=== PATIENT | male | born 1960 | race Caucasian/White ===

== ENCOUNTER 2016-09-13 07:42 | Inpatient (IN) ==
[2016-09-13] MEDS ORDERED: D5 1/2 NS 1,000 ML IV ONE (08:09)
--- NOTE | 2016-09-13 08:14 | PROVIDER DOCUMENTATION ---
HPI-General Adult - General Chief Complaint: Weakness Stated Complaint: WEAKNESS, NOT APPETITE Time Seen by Provider: 09/13/16 08:05 Source: patient Unable to obtain history due to:: urgency Allergies/Adverse Reactions: Patient Allergies Allergy/AdvReac Type Severity Reaction Status Date / Time Sulfa (Sulfonamide Allergy Unknown Verified 04/12/16 12:40 Antibiotics) Home Medications: Home Medication List Medication Instructions Recorded Confirmed Last Taken Type Calcium Carbonate/Vit D3 [Caltrate 1 each PO BID #0 tablet 04/22/16 Unknown Rx 600 + D] Docusate Sodium [Colace] 100 mg PO BID #0 capsule 04/22/16 Unknown Rx Insulin Glargine [Lantus] 5 unit SUBQ DAILY #2 insuln.pen 04/22/16 Unknown Rx Metformin [Glucophage] 850 mg PO BID CC #120 tablet 04/22/16 Unknown Rx Sitagliptin [Januvia] 100 mg PO DAILY #90 tablet 04/22/16 Unknown Rx - History of Present Illness -Gen Adult Nature of Presenting Problems: 55 year old male presents with complaint of generalized weakness and fatigue. Says he has no appetite. He weighs about 75lbs and is 6 feet. He looks extremely cachectic. Denies any chest pain, dyspnea, n/v/d. Location of Pain/Injury: reports: none Pain Radiation: reports: no radiation Quality of Pain: reports: none Onset/Duration: reports: unsure Timing: reports: still present Context/Activities at Onset: reports: none Modifying Factors: improves with: nothing Associated Symptoms: reports: loss of appetite Similar Symptoms Previously?: No Recently seen or treated by another doctor?: No - Sickle Cell Pain Related Context Sickle Cell Pain Location: reports: none Review of Systems - Adult - REVIEW OF SYSTEMS - ADULT Constitutional: reports: see HPI, fatique Eyes: reports: see HPI Ears, Nose, Mouth & Throat: reports: no symptoms reported Cardiovascular: reports: no symptoms reported Respiratory: reports: no symptoms reported Gastrointestinal: reports: no symptoms reported Genitourinary: reports: no symptoms reported Musculoskeletal: reports: no symptoms reported Integumentary: reports: see HPI, skin thickening, other (dry skin, poor skin turgor) Neurological: reports: no symptoms reported Psychiatric: reports: no symptoms reported Endocrine: reports: no symptoms reported Hematologic/Lymphatic: reports: no symptoms reported Allergic/Immunologic: reports: no symptoms reported All Other Systems: Reviewed and Negative Past History - Adult - PAST MEDICAL HISTORY-ADULT Review of Records: reports: Old Records Reviewed, Nursing Assessment Review, Medications Reviewed, Social history reviewed & non-contributory. Endocrine/Immune: reports: Diabetes - PRIOR SURGERIES/PROCEDURES Surgical/Procedure History: reports: orthopedic (extremity) - IMMUNIZATION STATUS Childhood Immunizations: See Nurse Assessment Flu Vaccine: See Nurse Assessment - FAMILY HISTORY Family History: reviewed, not pertinent Physical Exam-General - PHYSICAL EXAM-ADULT Initial Vital Signs Reviewed: Yes - CONSTITUTIONAL General Appearance: cachetic, thin - EYES Eyes: PERRL/EOMI - HEAD, EARS, NOSE, MOUTH & THROAT HENMT: normocephalic/atraumatic, TMs normal - NECK Neck: non-tender, full range of motion, supple - RESPIRATORY Respiratory: chest non-tender, lungs clear, normal breath sounds - CARDIOVASCULAR Cardiovascular: normal peripheral pulses, regular rate, rhythm, no edema - GASTROINTESTINAL (ABDOMEN) Abdominal Exam: normal bowel sounds, non tender, soft - LYMPHATIC Lymphatic: no adenopathy - MUSCULOSKELETAL Back Exam: normal inspection, no CVA tenderness, no vertebral tenderness Extremity: normal range of motion, non-tender, normal gait - SKIN Integumentary: warm/dry, warm - NEUROLOGIC Neurologic: [employer] II-XII nml as tested, grossly normal - PSYCHIATRIC Psych/Mental Status: normal mood/affect Progress - PLAN OF CARE/RESULTS Progress/Plan/Lab Results: Vital Signs - 8 hr 09/13/16 07:43 Temperature 96.8 F L Pulse Rate 92 H Respiratory Rate 20 Blood Pressure 129/087 Orders Category Date Time Status Cardiac Monitoring DIRECTED Care 09/13/16 08:06 Ordered Oxygen Therapy- ED Nursing DIRECTED Care 09/13/16 08:06 Ordered Saline Loc NOW Care 09/13/16 08:06 Ordered CHEST-1 VIEW [RAD] Stat Exams 09/13/16 08:08 Ordered CBC WITH ELECTRONIC DIFF [HEME] Stat Lab 09/13/16 08:06 Ordered CK PROFILE [SP CHEM] Stat Lab 09/13/16 08:06 Ordered COMPREHENSIVE METABOLIC PANEL [CHEM] Stat Lab 09/13/16 08:06 Ordered MAGNESIUM [CHEM] Stat Lab 09/13/16 08:06 Ordered PRO B-NATRIURETIC PEPTIDE Stat Lab 09/13/16 08:06 Or[address]IME WITH INR PL [COAG] Stat Lab 09/13/16 08:[address] [COAG] Stat Lab 09/13/16 08:06 Ordered TROPONIN T Stat Lab 09/13/16 08:06 Ordered Dextrose 5%-0.45% NaCl Inj [D5 1/2 Ns] 1,000 ml Med 09/13/16 08:09 Ordered IV WIDE OPEN EKG [EKG] Stat Ther 09/13/16 08:06 Ordered Result Diagrams: 09/13/16 08:20 09/13/16 08:20 Departure - Departure Time of Disposition Decision: :17 DIAGNOSIS: Malnutrition compromising bodily function, Hypoglycemia, Generalized weakness Disposition: ADMITTED INPATIENT 09 Certified Medical Emergency: Emergent Condition: Critical Additional Freetext Instructions: case discussed with Dr. Ortiz Referrals and Follow-Ups: Rah Collins [Primary Care Provider] - - Critical Care Note This patient required my direct & personal management of CC.: Yes Attestation - Physician/ CARMENCITA Attestation Patient care was provided by Advanced Practice Provider:: Yes Advanced Practice Provider documentation review:: The Mid-level provider documentation, treatment plan and medical decision making was reviewed by the physician who agrees with all treatment and medical decision making by the MLP. The physician spent face to face time with patient:: Yes Advanced Practice Provider documentation review:: The physician spent face to face time with this patient and agrees with all MLP documentation, treatment, and medical decision making by the MLP. See provider notes for further information.
--- NOTE | 2016-09-13 08:14 | EKG Report ---
Test Performed on : 09/13/2016 08:06:50 AM Test Reason : CHEST PAIN Blood Pressure : / mmHG Vent. Rate : 085 BPM Atrial Rate : 085 BPM P-R Int : 148 ms QRS Dur : 086 ms QT Int : 406 ms P-R-T Axes : 088 094 054 degrees QTc Int : 483 ms Normal sinus rhythm. Rightward axis Prolonged QT Abnormal ECG When compared with ECG of 12-APR-2016 13:57, No significant change was found Unconfirmed Result
[2016-09-13 08:26] LABS: MANUAL DIFF NEEDED? NO
[2016-09-13 08:30] LABS: BASO% 0.3 % (0.0-0.8); EOS% 0.1 % (0.0-10.0); HEMATOCRIT 38.3 % (42.0-52.0); HEMOGLOBIN 14.7 g/dL (14.0-18.0); LYMPH# 1.27 X1000 (1.2-3.4); LYMPH% 18.3 % (20.5-51.1); MCHC 38.4 g/dL (33-37); MCV 91.2 FL (81-99); MONO% 10.6 % (1.7-9.3); MPV 10.3 FL (7.4-10.4); NEUT% 70.4 % (42.2-75.2); PLT 157 X1000 (130-400)
[2016-09-13 08:31] LABS: EOS# 0.01 X1000 (0.0-0.7); MONO# 0.74 X1000 (0.11-0.59)
[2016-09-13] MEDS ORDERED: D50W SYRINGE ONE (08:31)
[2016-09-13] MEDS ORDERED: D50W SYRINGE IV ONE (08:35)
--- NOTE | 2016-09-13 08:38 | Diag Imaging Result Doc PS360 ---
EXAM: CHEST-PORTABLE - 09/13/2016 HISTORY: weak TECHNIQUE: Portable chest one view COMPARISON: 07/04/2016 FINDINGS: Heart size is normal. There is been interval decrease in left upper lobe opacity. There is possibly a small residual left upper lobe opacity but there is artifact over this area from overlying clavicle and scapula. The remainder of the lungs appear essentially clear. There is no pleural effusion or pneumothorax identified. The PICC has been removed. IMPRESSION: Decrease in left upper lobe opacity compared to prior. No other evidence of acute disease. Electronically signed by Kwabena Kimble 09/13/2016 8:36 AM
[2016-09-13 08:46] LABS: INR 0.96 (0.86-1.15); PROTIME 13.1 Seconds (12.1-15.5); PTT PL 28.7 Seconds (22.6-43.9)
[2016-09-13 08:59] LABS: AGAP 16; ALBUMIN 4.2 g/dL (3.5-5.0); ALKALINE PHOSPHATASE 98 U/L (32-122); BUN 50 mg/dL (8-22); CALCIUM 9.5 mg/dL (8.8-10.2); CHLORIDE 89 mmol/L (98-107); CK PROFILE 34 U/L (24-204); COSMO 278; GOT 41 U/L (10-34); GPT 23 U/L (10-44); MAGNESIUM 1.7 mg/dL (1.5-2.7); POTASSIUM 3.7 mmol/L (3.5-5.1); SODIUM 132 mmol/L (136-145); TCO2 27 mmol/L (25-35); TOTAL PROTEIN 7.3 g/dL (6.3-8.3)
[2016-09-13] MEDS ORDERED: TYLENOL PO PRN (11:00)
[2016-09-13] MEDS ORDERED: PNEUMOVAX 23 IM ONE (11:00)
[2016-09-13] MEDS ORDERED: ZOFRAN IV PRN (11:00)
[2016-09-13] MEDS: NS 1,000 ML IV SCH ×2 (12:00→21:28)
--- NOTE | 2016-09-13 12:34 | HISTORY AND PHYSICAL ---
PRIMARY CARE PHYSICIAN: Dr. Rah Collins. CHIEF COMPLAINT: Generalized weakness, fatigue, and weight loss. HISTORY OF PRESENTING ILLNESS: This is a 55-year-old male who presents to the [facility] ER with complaints of just generalized weakness, fatigue, and weight loss. Was in the hospital back in June for a left upper lobe pneumonia. There was a question of a left upper lobe mass. He states he has had a complete workup including a PET scan that was negative for any cancer, but states that over the past 8 months he has lost approximately 100 pounds. States that he does not have an appetite. Denies any nausea or vomiting when he does eat. He has had decreased fluid intake also. He appears very cachectic, with muscle wasting. Laboratory data is fairly unremarkable except for a sodium of 132 and a chloride of 89. His BUN is 50. His albumin level was 4.2. His chest x-ray showed a decrease in the left upper lobe opacity compared to the prior on 07/04/2016, when he had a left upper lobe pneumonia, and no other evidence of an acute disease, but we will admit him for further evaluation and treatment. PAST MEDICAL HISTORY: Diabetes, type 2. PAST SURGICAL HISTORY: Umbilical hernia repair. FAMILY HISTORY: Noncontributory. SOCIAL HISTORY: He lives with family. Smokes 1-1/2 packs of cigarettes a day and has done so for the past 20+ years. Denies any alcohol or illicit drug use. LABORATORY DATA: Showed a white blood cell count of 6.95, hemoglobin 14.7, hematocrit 38.3, and platelets 157,000. PT and INR were 13.1 and 0.96. Sodium was 132, potassium 3.7, chloride 89, CO2 of 27, BUN 50, creatinine 1.1, glucose 102, and magnesium 1.7. It is noted that a fingerstick at the bedside approximately 10 minutes after arriving showed a blood sugar of 30. Troponin was negative at 0.015. Creatine kinase was 34. ProBNP was 466. ELECTROCARDIOGRAM: Normal sinus rhythm at 85. IMAGING: Chest x-ray showed a decrease in the left upper lobe opacity compared to the prior on 07/04/2016 and no other evidence of an acute disease. REVIEW OF SYSTEMS: He denies any fever, chills, blurred vision, dizziness, chest pain, coughing, or shortness of breath. He is positive for decreased appetite. Denies any abdominal pain, nausea, vomiting, constipation, diarrhea, burning or hurting with urination. PHYSICAL EXAMINATION: VITAL SIGNS: On arrival, his temperature was 96.8 degrees, pulse 92, respirations 20, blood pressure 129/87, saturating 100% on room air. GENERAL: This is a 55-year-old male who is lying in the bed, appears thin and cachectic with muscle wasting, but answers all questions appropriately, and is alert and oriented x3. HEENT: Normocephalic and atraumatic. Pupils are equal, round, and reactive to light. Extraocular movements are intact. Oropharynx and nares are clear. NECK: Supple. LUNGS: Clear to auscultation bilaterally, with equal lung expansion and chest wall movement. HEART: Regular rate and rhythm. No murmurs, rubs, or gallops. ABDOMEN: Soft, concave. Bowel sounds are present x4 quadrants. EXTREMITIES: No clubbing, cyanosis, or edema. NEUROLOGICAL: The cranial nerves 2-12 are grossly intact. ASSESSMENT: 1. Generalized weakness. 2. Anorexia. 3. Mild hyponatremia. 4. Diabetes, type 2, with hypoglycemia. PLAN: He will be admitted to the medical unit, placed on normal saline at 125 mL an hour. It is noted that he had a bag of D5 in the ER. We will place on a diabetic diet. We will get a dietitian consult, social service consult for discharge planning for home health and physical therapy. We will consult physical therapy here in the hospital. Place on telemetry. Normal saline at 125 mL an hour and we will recheck a CBC and a CMP in the a.m. HOME MEDICATIONS: Will obtain a list once we verify his home medications and restart those as appropriate. Dictated by MONA Gomez for Kishor Ortiz MD cc: MONA Gomez MD Alan Walker, MD
[2016-09-13] MEDS: NICODERM PATCH TD SCH (16:04)
[2016-09-13] MEDS: HUMALOG (PARKWAY) SUBQ SCH (21:37)
[2016-09-13] MEDS: RESTORIL PO PRN (23:56)
[2016-09-14] MEDS: NS 1,000 ML IV SCH ×3 (05:30→20:08)
[2016-09-14 05:55] LABS: MANUAL DIFF NEEDED? NO
[2016-09-14 06:01] LABS: BASO% 0.2 % (0.0-0.8); EOS# 0.02 X1000 (0.0-0.7); EOS% 0.4 % (0.0-10.0); HEMATOCRIT 30.6 % (42.0-52.0); HEMOGLOBIN 11.3 g/dL (14.0-18.0); IMM GRAN# 0.01 X1000 (0.0-0.04); IMM GRAN% 0.2 % (0.0-0.5); LYMPH# 1.42 X1000 (1.2-3.4); MCHC 36.9 g/dL (33-37); MCV 92.2 FL (81-99); MONO# 0.61 X1000 (0.11-0.59); MONO% 11.2 % (1.7-9.3); MPV 10.7 FL (7.4-10.4); PLT 118 X1000 (130-400); RBC 3.32 XMIL (4.7-6.1)
[2016-09-14 06:33] LABS: AGAP 10; ALBUMIN 3.3 g/dL (3.5-5.0); ALKALINE PHOSPHATASE 94 U/L (32-122); BUN 39 mg/dL (8-22); CALCIUM 8.3 mg/dL (8.8-10.2); CHLORIDE 100 mmol/L (98-107); COSMO 284; GOT 31 U/L (10-34); GPT 18 U/L (10-44); POTASSIUM 3.2 mmol/L (3.5-5.1); SODIUM 136 mmol/L (136-145); TCO2 26 mmol/L (25-35); TOTAL PROTEIN 5.6 g/dL (6.3-8.3)
[2016-09-14] MEDS: HUMALOG (PARKWAY) SUBQ SCH (06:35)
[2016-09-14] MEDS ORDERED: KLOR-CON PO ONE (06:47)
--- NOTE | 2016-09-14 08:33 | PROGRESS NOTE ---
DATE: 09/14/2016 SUBJECTIVE: The patient notes that he feels tremendously better. In fact, notes that he started feeling better last night after being given large amounts of IV fluids in the ER. Denies any headaches, blurred vision. Denies any diarrhea or constipation. States he has not been eating because food does not taste good. PHYSICAL EXAMINATION: Vital Signs: Temperature 98, pulse 84, respiratory rate 20, blood pressure 114/65, saturating 99% percent on room air. General: Patient is an awake, alert, very cachectic and thin-appearing white male, who is in no respiratory distress. Pleasant to talk with. Neck: Supple. Cardiovascular: Regular rate. Chest: Clear. Abdomen: Soft, cachectic. Extremities: Moves all extremities. Neurologic: No changes. LABORATORY STUDIES: CBC and CMP essentially normal. Glucose is stable at 144 to 158. Creatinine 0.6. Albumin 3.3. ASSESSMENT: 1. Hypoglycemia, secondary to poor nutrition, as well as continuing to take Lantus. 2. Generalized weakness. 3. Anorexia. 4. Mild hyponatremia, resolved. 5. Mild hypokalemia. Will replace. 6. Diabetes. At this point, we will restart his Januvia only. We will change his IV fluids to normal saline and will follow. We will hold his Glucophage, as it is possible that Glucophage may be decreasing his appetite. Will hold his Lantus as well, as his blood sugars are relatively stable presently without it. 7. Hypertension. Will add low-dose AUBRIE inhibitor. PLAN: As noted above, we will continue the patient in the hospital today on IV fluids. We will add Megace to his Periactin. Certainly, may consider using an atypical antipsychotic such as Abilify to try and assist if he has some depressive-type symptoms causing his anorexia. Hopefully, the side effect of weight gain would be beneficial. cc: Kishor Ortiz MD
[2016-09-14] MEDS: JANUVIA PO SCH (09:12)
[2016-09-14] MEDS: MEGACE PO SCH ×3 (09:12→17:10)
[2016-09-14] MEDS: PERIACTIN PO SCH ×2 (09:12→20:08)
[2016-09-14] MEDS: NICODERM PATCH TD SCH (09:12)
[2016-09-14] MEDS: PRINIVIL PO SCH (09:13)
[2016-09-14] MEDS ORDERED: GLUCOPHAGE PO SCH (17:00)
[2016-09-14] MEDS: HUMALOG DOSE (PARKWAY) SUBQ SCH ×2 (17:10→22:20)
[2016-09-14] MEDS: RESTORIL PO PRN (22:20)
[2016-09-15] MEDS: NS 1,000 ML IV SCH (05:27)
[2016-09-15 06:11] LABS: HEMATOCRIT 29.6 % (42.0-52.0); HEMOGLOBIN 10.5 g/dL (14.0-18.0); MCH 33.5 PG (27-31); MCHC 35.5 g/dL (33-37); MCV 94.6 FL (81-99); MPV 10.9 FL (7.4-10.4); RBC 3.13 XMIL (4.7-6.1)
[2016-09-15] MEDS: HUMALOG DOSE (PARKWAY) SUBQ SCH ×4 (06:24→21:53)
[2016-09-15 06:31] LABS: AGAP 9; ALKALINE PHOSPHATASE 128 U/L (32-122); BUN 25 mg/dL (8-22); CALCIUM 8.1 mg/dL (8.8-10.2); CHLORIDE 102 mmol/L (98-107); COSMO 284; GOT 50 U/L (10-34); GPT 24 U/L (10-44); MAGNESIUM 1.2 mg/dL (1.5-2.7); POTASSIUM 3.6 mmol/L (3.5-5.1); SODIUM 138 mmol/L (136-145); TCO2 28 mmol/L (25-35); TOTAL PROTEIN 5.2 g/dL (6.3-8.3)
[2016-09-15] MEDS ORDERED: MAGNESIUM SULFATE 2 GM/S.W.I. 2 GM/50 ML IVPB IV ONE (07:01)
--- NOTE | 2016-09-15 07:43 | PROGRESS NOTE ---
DATE: 09/15/2016 SUBJECTIVE: The patient notes that he is feeling tremendously better. Denies any chest pain or palpitations. Denies any fevers or chills currently. States that he is starting to eat better. In fact, notes that he ate supper last night for the time in weeks. PHYSICAL EXAMINATION: Vital Signs: Temperature 99 degrees, pulse 99, respiratory rate 20, BP 119/69, saturation 100% on room air. General: The patient is awake, alert, oriented. He is a very frail appearing male who is currently in no respiratory distress. He is pleasant to talk with. Neck: Supple. CV: Regular rate. Chest: Relatively clear. Abdomen: Soft. Extremities: Moves all extremities. Neurologic: No changes. DIAGNOSTIC DATA: CBC normal. CMP essentially normal with a glucose of 178, magnesium 1.2, and albumin 3. ASSESSMENT: 1. Severe protein calorie malnutrition with cachexia. 2. Generalized weakness. 3. Anorexia. 4. Mild hyponatremia, resolved. 5. Mild hypokalemia, resolved. 6. Diabetes with hypoglycemia. We will continue to hold his Glucophage to see if this is affecting his appetite. Currently, his blood sugars are stable without it. 7. Hypertension, stable. PLAN: Patient's blood sugars are much improved, was 30 on admission and currently is in the 178 range. We have continued him on normal saline. We will stop that this morning. He is on cyproheptadine as well as Megace. We will continue to follow his blood sugars as well as his oral intake. As noted, we will continue to hold his Glucophage to see if this is affecting his appetite at all. We will replace his magnesium, recheck in the a.m. Hopefully home in the next 1- 2 days. cc: Kishor Ortiz MD
[2016-09-15] MEDS: NICODERM PATCH TD SCH (08:30)
[2016-09-15] MEDS: PRINIVIL PO SCH (08:30)
[2016-09-15] MEDS: JANUVIA PO SCH (08:30)
[2016-09-15] MEDS: PERIACTIN PO SCH ×2 (08:30→21:53)
[2016-09-15] MEDS: MEGACE PO SCH ×3 (08:31→16:12)
[2016-09-15] MEDS: LANTUS INSULIN (PARKWAY) SUBQ SCH (08:34)
[2016-09-15] MEDS: RESTORIL PO PRN (21:53)
[2016-09-16] MEDS: HUMALOG DOSE (PARKWAY) SUBQ SCH ×4 (06:42→21:29)
[2016-09-16 07:02] LABS: HEMATOCRIT 30.6 % (42.0-52.0); HEMOGLOBIN 10.8 g/dL (14.0-18.0); MCH 33.5 PG (27-31); MCHC 35.3 g/dL (33-37); MPV 11.2 FL (7.4-10.4); RBC 3.22 XMIL (4.7-6.1)
[2016-09-16 07:05] LABS: HEMOGLOBIN A1C 4.3 % (4.8-6.0)
[2016-09-16 07:10] LABS: AGAP 8; ALBUMIN 3.1 g/dL (3.5-5.0); ALKALINE PHOSPHATASE 120 U/L (32-122); BUN 22 mg/dL (8-22); CHLORIDE 106 mmol/L (98-107); COSMO 291; GOT 36 U/L (10-34); GPT 23 U/L (10-44); MAGNESIUM 1.4 mg/dL (1.5-2.7); POTASSIUM 3.9 mmol/L (3.5-5.1); SODIUM 143 mmol/L (136-145); TCO2 29 mmol/L (25-35); TOTAL PROTEIN 5.2 g/dL (6.3-8.3)
[2016-09-16] MEDS: JANUVIA PO SCH (08:43)
[2016-09-16] MEDS: PERIACTIN PO SCH ×2 (08:43→21:29)
[2016-09-16] MEDS: PRINIVIL PO SCH (08:43)
[2016-09-16] MEDS: MEGACE PO SCH ×3 (08:43→17:01)
[2016-09-16] MEDS: LANTUS INSULIN (PARKWAY) SUBQ SCH (08:43)
[2016-09-16] MEDS: NICODERM PATCH TD SCH (08:47)
[2016-09-16] MEDS ORDERED: MAGNESIUM SULFATE 2 GM/S.W.I. 2 GM/50 ML IVPB IV ONE (11:17)
[2016-09-16] MEDS ORDERED: NS 0 ML ONE (11:30)
--- NOTE | 2016-09-16 13:23 | PROGRESS NOTE ---
DATE: 09/16/2016 SUBJECTIVE: The patient is eating better. OBJECTIVE: Vital Signs: Blood pressure 124/69, heart rate of 97, respiratory rate 19, temperature 98.7 degrees, satting 100% on room air. Cardiovascular: Regular rate and rhythm. Pulmonary: Bilateral breath sounds. Clear to auscultation. GI: Soft, nontender, nondistended. Bowel sounds are positive. LABORATORY DATA: White count 5, hemoglobin and hematocrit 10 and 30, platelets of 104. CMP was okay. Sugars have been 200 average. A1c though only 4.3, magnesium of 1.4. AST of 36, albumin of 3.1. PROBLEM LIST: 1. Severe protein calorie malnutrition. I am just not sure what the primary mechanism of this is. This patient is profoundly malnourished. He is just flat out not eating. We will continue supplementation and follow. He is improved. 2. Diabetes. He appears to be stable. We are holding all diabetic medications right now because of relative hypoglycemia, so will continue to follow. DISPOSITION: Again, I am not quite sure why he is losing weight. I am going to screen him for HIV and hepatitis. He has this left upper lobe mass, but it has been biopsied and is negative for malignancy. I am going to repeat his scan and follow. It is very unclear what has caused the steady decline. I do think he has an alcohol abuse history, but I do not think that is enough to explain his significant decline. He had a subcapsular splenic fluid collection that was treated. Subsequently he has been screened for TB; that has been negative. You know, he had a splenic abscess that I do not think is well characterized. It is just unclear what caused his pathology overall, but we will continue to monitor. cc: Thomas Lane MD
[2016-09-16] MEDS: RESTORIL PO PRN (21:31)
[2016-09-17] MEDS: HUMALOG DOSE (PARKWAY) SUBQ SCH ×4 (06:46→20:35)
[2016-09-17 07:12] LABS: HEMATOCRIT 29.5 % (42.0-52.0); HEMOGLOBIN 10.3 g/dL (14.0-18.0); MCH 33.3 PG (27-31); MCHC 34.9 g/dL (33-37); MCV 95.5 FL (81-99); MPV 11.1 FL (7.4-10.4); RBC 3.09 XMIL (4.7-6.1)
[2016-09-17 07:40] LABS: AGAP 8; BUN 25 mg/dL (8-22); CHLORIDE 106 mmol/L (98-107); COSMO 283; MAGNESIUM 1.6 mg/dL (1.5-2.7); POTASSIUM 4.1 mmol/L (3.5-5.1); SODIUM 138 mmol/L (136-145); TCO2 24 mmol/L (25-35)
[2016-09-17 07:42] LABS: ALBUMIN 3.1 g/dL (3.5-5.0); ALKALINE PHOSPHATASE 120 U/L (32-122); DIRECT BILIRUBIN < 0.20 mg/dL (0.00-0.20); GOT 38 U/L (10-34); GPT 25 U/L (10-44); TOTAL PROTEIN 5.2 g/dL (6.3-8.3)
--- NOTE | 2016-09-17 07:55 | Diag Imaging Result Doc PS360 ---
CT THORAX W/CONTRAST - 09/17/2016 INDICATION: pneumonia TECHNIQUE: A CT dose reduction protocol was used. COMPARISON: 04/15/2016 FINDINGS: There is no mass or adenopathy. The patient is very cachectic. Stable renal stone in the left kidney. There is trace ascites. This has decreased from prior. The left pleural effusion has resolved. The left upper lobe focal infiltrate has significantly improved, with some residual scarring, bronchiectasis, and cystic change in its place. No new infiltrates. Heart and great vessels are normal. There are moderate degenerative changes of the spine. No acute or suspicious bony lesion. IMPRESSION: Significant improvement from prior. No new abnormality or suspicious findings. Electronically signed by Danny Coronel 09/17/2016 7:52 AM
[2016-09-17] MEDS: LANTUS INSULIN (PARKWAY) SUBQ SCH (08:33)
[2016-09-17] MEDS: PERIACTIN PO SCH ×2 (08:33→20:34)
[2016-09-17] MEDS: NICODERM PATCH TD SCH (08:34)
[2016-09-17] MEDS: JANUVIA PO SCH (08:34)
[2016-09-17] MEDS: PRINIVIL PO SCH (08:34)
[2016-09-17] MEDS: MEGACE PO SCH ×3 (08:34→17:01)
[2016-09-17] MEDS ORDERED: CLINIMIX E 4.25%-5% SOLUTION 1,000 ML IV SCH (12:02)
[2016-09-17] MEDS ORDERED: SODIUM PHOSPHATE 40 MEQ in NS 250 ML IV ONE (13:00)
--- NOTE | 2016-09-17 16:50 | PROGRESS NOTE ---
DATE: 09/17/2016 SUBJECTIVE: Patient has no focal complaints. OBJECTIVE: Vital signs: Blood pressure 143/69, heart rate 112, respiratory rate 18, temperature 97.8 degrees, 96% on room air. Cardiovascular: Regular rate and rhythm. Pulmonary: Bilateral breath sounds. Clear to auscultation. GI: Soft, nontender, nondistended. Bowel sounds are positive. LABORATORY STUDIES: White count 5.5, hemoglobin and hematocrit and 10 and 29, platelets 105,000. Basic was normal. Phosphorus of 0.7. PROBLEM LIST: 1. Severe cachexia, protein calorie malnutrition. It just very unclear what the primary mechanism is. It is possible it is uncontrolled diabetes but his A1c is 4.6. I just do not understand why he is losing weight. His chest CT showed resolution of his left upper lobe airspace disease. It is just very unclear what happened. He has been evaluated for TB. HIV and hepatitis screens are pending. We will continue to follow. 2. Hypokalemia, hypomagnesemia, hypophosphatemia. Supplement and follow. 3. Diabetes. Appears to be stable. Right now he is on a little bit Lantus and we are just continuing to follow. DISPOSITION: Hopefully home soon, in the next 1-2 days. We will continue to monitor. cc: Thomas Lane MD
[2016-09-17] MEDS: RESTORIL PO PRN (21:49)
[2016-09-18 06:31] LABS: AGAP 8; BUN 30 mg/dL (8-22); CALCIUM 8.5 mg/dL (8.8-10.2); CHLORIDE 107 mmol/L (98-107); COSMO 290; POTASSIUM 4.1 mmol/L (3.5-5.1); SODIUM 140 mmol/L (136-145); TCO2 25 mmol/L (25-35)
[2016-09-18 06:36] LABS: HEMOGLOBIN 9.7 g/dL (14.0-18.0); MCH 33.7 PG (27-31); MCHC 34.6 g/dL (33-37); MCV 97.2 FL (81-99); MPV 10.8 FL (7.4-10.4); RBC 2.88 XMIL (4.7-6.1)
[2016-09-18] MEDS: HUMALOG DOSE (PARKWAY) SUBQ SCH ×4 (06:43→20:20)
[2016-09-18] MEDS: NICODERM PATCH TD SCH (08:04)
[2016-09-18] MEDS: LANTUS INSULIN (PARKWAY) SUBQ SCH (08:04)
[2016-09-18] MEDS: MEGACE PO SCH ×3 (08:05→15:59)
[2016-09-18] MEDS: JANUVIA PO SCH (08:05)
[2016-09-18] MEDS: PRINIVIL PO SCH (08:06)
[2016-09-18] MEDS: PERIACTIN PO SCH ×2 (08:11→20:20)
[2016-09-18 08:27] LABS: HIV ANTIBODY SCREEN SEE COMMENTS
--- NOTE | 2016-09-18 17:37 | PROGRESS NOTE ---
DATE: 09/18/2016 SUBJECTIVE: Patient has no focal complaints. OBJECTIVE: Vital signs: Blood pressure 126/66, heart rate 119, respiratory rate 20, temperature 98.8 degrees, 100% on room air. Cardiovascular: Regular rate and rhythm. Pulmonary: Bilateral breath sounds. Clear to auscultation. GI: Soft, nontender, nondistended. Bowel sounds are positive. LABORATORY DATA: CMP was okay, CBC was okay. Platelets up to 121,000. PROBLEM LIST: 1. Severe protein calorie malnutrition. We will continue to progress with diet. I am going to allow the patient to have a regular diet just to increase his caloric intake. I am going to be a little bit permissive with his blood sugar and follow closely. He is very motivated to eat so I am going to try not to get in the way of that. We will add thiamine and folic acid to his regimen. 2. Diabetes. I am not entirely sure if uncontrolled diabetes may not have at least partially contributed to his weight loss, although right now his A1c is normal, if anything very low at 4. Phosphorus level is low so that was supplemented. DISPOSITION: Pending improvement in his physical status, I think he could probably go home here soon next 1-2 days. cc: Thomas Lane MD
[2016-09-18] MEDS: FOLIC ACID PO SCH (20:20)
[2016-09-18] MEDS: VITAMIN B-1 PO SCH (20:20)
[2016-09-18] MEDS: THERA M PLUS PO SCH (20:20)
[2016-09-18] MEDS: RESTORIL PO PRN (22:43)
[2016-09-19] MEDS: HUMALOG DOSE (PARKWAY) SUBQ SCH ×4 (06:16→23:04)
[2016-09-19 07:04] LABS: HEMATOCRIT 27.1 % (42.0-52.0); HEMOGLOBIN 9.3 g/dL (14.0-18.0); MCH 33.6 PG (27-31); MCHC 34.3 g/dL (33-37); MCV 97.8 FL (81-99); MPV 10.7 FL (7.4-10.4); RBC 2.77 XMIL (4.7-6.1)
[2016-09-19 07:14] LABS: AGAP 8; ALBUMIN 3.2 g/dL (3.5-5.0); ALKALINE PHOSPHATASE 111 U/L (32-122); BUN 26 mg/dL (8-22); CALCIUM 8.9 mg/dL (8.8-10.2); CHLORIDE 107 mmol/L (98-107); COSMO 283; GOT 42 U/L (10-34); GPT 33 U/L (10-44); POTASSIUM 4.2 mmol/L (3.5-5.1); SODIUM 138 mmol/L (136-145); TCO2 23 mmol/L (25-35); TOTAL PROTEIN 5.6 g/dL (6.3-8.3)
[2016-09-19] MEDS: LANTUS INSULIN (PARKWAY) SUBQ SCH (09:09)
[2016-09-19] MEDS: NICODERM PATCH TD SCH (09:10)
[2016-09-19] MEDS: MEGACE PO SCH ×3 (09:10→17:22)
[2016-09-19] MEDS: PERIACTIN PO SCH ×2 (09:10→23:02)
[2016-09-19] MEDS: FOLIC ACID PO SCH (09:11)
[2016-09-19] MEDS: VITAMIN B-1 PO SCH (09:11)
[2016-09-19] MEDS: PRINIVIL PO SCH (09:11)
[2016-09-19] MEDS: JANUVIA PO SCH (09:11)
[2016-09-19] MEDS: THERA M PLUS PO SCH (09:11)
--- NOTE | 2016-09-19 14:49 | PROGRESS NOTE ---
DATE: 09/19/2016 SUBJECTIVE: The patient has no complaints. He states he is feeling better. His appetite is increasing. He denies any chest pain, palpitations, nausea, vomiting. OBJECTIVE: Vital Signs: Blood pressure is 154/72 with a heart rate of 96, respirations are 18, temperature is 99.1 degrees oral with oxygen saturations of 96-100% on room air. Cardiovascular: Regular rate and rhythm. S1 and S2 appreciated. Pulmonary: Breath sounds are clear with no increased work of breathing noted. Gastrointestinal: Abdomen is soft, nontender, nondistended. Bowel sounds in all 4 quadrants. Extremities: Cachectic, no clubbing cyanosis , or edema. Pulses are palpable x4. Calves are nontender. LABS: WBC is 5.1 with hemoglobin 9.3, hematocrit 27.1, and platelets of 142, 000. Sodium is 138, potassium 4.2, BUN 26, creatinine 0.4 with blood glucose that ranges 140 to 250. PROBLEM LIST: 1. Severe protein calorie malnutrition. We will continue to progress with his diet. He states that his appetite has increased greatly with the medications that have been added. We will continue these. 2. Diabetes mellitus. We will continue to follow, continue Lantus with sliding scale regular insulin as well as his Januvia and metformin. 3. Electrolyte imbalance. We will follow electrolytes, replete as appropriate. Dictated by MONA Thompson for Thomas Lane MD cc: MONA Thompson MD pt examined, agree with above, MAS[facility] SMALLPOX HOSPITALSandy
[2016-09-19] MEDS: RESTORIL PO PRN (23:02)
[2016-09-20] MEDS: HUMALOG DOSE (PARKWAY) SUBQ SCH ×4 (06:33→21:07)
[2016-09-20] MEDS: LANTUS INSULIN (PARKWAY) SUBQ SCH (08:12)
[2016-09-20] MEDS: MEGACE PO SCH ×3 (08:13→16:46)
[2016-09-20] MEDS: FOLIC ACID PO SCH (08:13)
[2016-09-20] MEDS: PRINIVIL PO SCH (08:13)
[2016-09-20] MEDS: THERA M PLUS PO SCH (08:13)
[2016-09-20] MEDS: NICODERM PATCH TD SCH (08:13)
[2016-09-20] MEDS: JANUVIA PO SCH (08:13)
[2016-09-20] MEDS: VITAMIN B-1 PO SCH (08:14)
[2016-09-20] MEDS: PERIACTIN PO SCH ×2 (08:14→21:07)
[2016-09-20 13:00] LABS: HEPATITIS PROFILE ACUTE SEE COMMENTS
--- NOTE | 2016-09-20 16:05 | PROGRESS NOTE ---
DATE: 09/20/2016 SUBJECTIVE: Mr. Araujo states that he feels even better today than yesterday. His appetite is increasing. He actually states he feels better than he has in quite some time. He denied chest pain, palpitations, nausea, vomiting. OBJECTIVE: Vital Signs: Blood pressure is 139/83, with a heart rate of 100, respirations are 18, temperature is 98.2 degrees oral with room air saturations of 100%. Cardiovascular: Regular rate and rhythm. S1 and S2 appreciated. Pulmonary: Breath sounds are clear with no increased work of breathing noted. Gastrointestinal: Abdomen is soft, nontender, nondistended with bowel sounds in all 4 quadrants. Extremities: He is cachectic with no clubbing, cyanosis or edema. Pulses are palpable x4. Calves are nontender. Neurologic: He is alert and oriented x3. LABS: Blood sugar has ranged from 203 to 250. PROBLEM LIST: 1. Severe protein calorie malnutrition. We will continue with his current diet and the current medications. 2. Diabetes mellitus. We will continue Lantus with sliding scale insulin, his Januvia and metformin. 3. Electrolyte imbalance. We will follow his electrolytes and replete as appropriate. 4. Disposition. The patient plans to go home tomorrow with [facility]. Dictated by MONA Thompson for Thomas Lane MD cc: MONA Thompson MD pt examined, agree with above APENOT MTDD
[2016-09-20] MEDS: RESTORIL PO PRN (21:58)
[2016-09-21] MEDS: HUMALOG DOSE (PARKWAY) SUBQ SCH ×2 (06:09→11:32)
[2016-09-21] MEDS: JANUVIA PO SCH (08:06)
[2016-09-21] MEDS: VITAMIN B-1 PO SCH (08:06)
[2016-09-21] MEDS: THERA M PLUS PO SCH (08:06)
[2016-09-21] MEDS: PRINIVIL PO SCH (08:06)
[2016-09-21] MEDS: PERIACTIN PO SCH (08:06)
[2016-09-21] MEDS: LANTUS INSULIN (PARKWAY) SUBQ SCH (08:06)
[2016-09-21] MEDS: MEGACE PO SCH (08:06)
[2016-09-21] MEDS: NICODERM PATCH TD SCH (08:06)
[2016-09-21] MEDS: FOLIC ACID PO SCH (08:06)
[2016-09-21 13:06] VITALS: BP 130/72
--- NOTE | 2016-10-21 22:27 | DISCHARGE SUMMARY ---
ADMISSION DATE: 09/13/2016 DISCHARGE DATE: 09/21/2016 DISCHARGE DIAGNOSES: 1. Severe protein-calorie malnutrition. 2. Diabetes. 3. Electrolytes hypokalemia. ADMISSION DIAGNOSES: 1. Weakness. 2. Anorexia. 3. Hyponatremia. 4. Diabetes. HOSPITAL COURSE: Briefly it is a 55-year-old male who came in for weakness and fatigue. He had significant weight loss, does have diabetes which he has not been taking much treatment for. His albumin level though was only 4.2. There was some concern about malignancy but this had been screened as an outpatient. He was placed on D5 and fluids and slowly improved. He was not eating, drinking the 1st several days at all. He continued to improve. He was placed on Megace and Periactin and consideration for Abilify. It took several days but he eventually started eating again. He had a chest CT accomplished on the . It was unclear exactly why he was losing weight although I am suspicious there may be a psychological component but also I think he had diabetes that was not being completely controlled. CT scan was negative for any malignancy. His infiltrates had been clinically improved. He slowly started eating and improved. His A1c though was only 4.6. On the he was felt stable for discharge. Blood pressure 130/72, heart rate 96, he was afebrile. Laboratory work on the showed an hemoglobin and hematocrit 9 and 27. Platelets were normal. CMP looked okay. Sugars were 200s and he was felt stable for discharge. DISCHARGE MEDICATIONS: Periactin 4 b.i.d., folic acid 1 daily, Lantus 10 daily, Megace 40 t.i.d., Glucophage 850 b.i.d., multivitamin daily, Januvia 50 daily, Restoril 15 daily, B1 100 daily. DISCHARGE CONDITION: Was stable. He was discharged in care of his regular physician who was Dr. Rah Collins. TIME SPENT: 35 minute discharge. cc: Thomas Lane MD
== END 2016-09-21 15:20 | disposition home health service (06) ==
LOC: P.ED 07:42 → SUATTDRO 07:43 → INTOOBSV 07:43 → OBSVTOIN 07:43 → P.MEDSURG 07:43
PROVIDERS: ATTEND Internal Medicine